=== PATIENT | male | born 1970 | race Caucasian/White ===

== ENCOUNTER 2016-11-17 19:00 | Emergency (ER) | payer OTHER ==
[~2016-11-17] VITALS: Ht 170.1 cm; Wt 65.8 kg
[~2016-11-17 19:00] MED LIST: CYCLOBENZAPRINE10 MG PO; HYDROCODONE BIT1 T11 PO; IMITREX25 M1 PO; MELOXICAM15 MG PO; NAPROSYN500 MG PO; NKHM; NORCO 325 MG-101 TAB PO; NORVASC5 MG PO; PREDNISONE10 MG PO; TOPAMAX25 M3 PO; VICODIN ES 7501 TAB PO; ZESTRIL2.5 MG PO; ZOFRAN ODT4 MG SL
== END 2016-11-17 22:03 | disposition home or self-care (01) ==
LOC: ED 19:00
DX: G44.209 Tension-type headache, unspecified, not intractable (principal); M25.511 Pain in right shoulder; Z79.899 Other long term (current) drug therapy; V49.88XA Car occupant (driver) (passenger) injured in other specified transport accidents, initial encounter; Y93.89 Activity, other specified; Y92.89 Other specified places as the place of occurrence of the external cause; Y99.9 Unspecified external cause status

== ENCOUNTER 2017-07-27 16:38 | Emergency (ER) | payer OTHER ==
[~2017-07-27] VITALS: Ht 170.1 cm; Wt 81.6 kg
[2017-07-27 17:38] LABS: BASO # 0.1 10*3/uL (0.0-0.1); BASO % 1.5 % (0.0-1.0); EOS % 14.3 % (1.0-4.0); HEMATOCRIT 42.1 % (42.0-52.0); HEMOGLOBIN 13.9 g/dl (14.0-18.0); LYMPH # 1.2 10*3/uL (1.3-4.4); LYMPH % 17.8 % (27.0-41.0); MEAN CELL VOLUME 81.4 fl (80.0-94.0); MEAN CORPUSCULAR HGB 26.9 pg (27.0-31.0); MEAN PLATELET VOLUME 9.3 fl (9.6-12.3); MONO # 0.5 10*3/uL (0.1-1.0); MONO % 7.9 % (3.0-9.0); NEUT % 58.4 % (47.0-73.0); PLATELET COUNT AUTOMATED 337 10*3/uL (130-400); RED BLOOD COUNT 5.17 10*6/uL (4.50-5.90); RED CELL DISTRI WIDTH 14.3 % (0-14.5); WHITE BLOOD COUNT 6.9 10*3/uL (4.8-10.8)
[2017-07-27 17:46] LABS: ACT PARTIAL THROMBO TIME 23.3 SECONDS (20.8-31.5)
[2017-07-27 17:55] LABS: ALBUMIN 3.8 gm/dl (3.1-4.5); ALKALINE PHOSPHATASE 74 U/L (45-117); BUN 11 mg/dl (7-24); CHLORIDE 107 mmol/L (98-107); CREATININE 1.11 mg/dL (0.70-1.30); LIPASE 193 U/L (73-393); SGOT/AST 20 IU/L (3-35); SGPT/ALT 30 U/L (12-78); SODIUM 141 mmol/L (136-145); TOTAL PROTEIN 7.8 gm/dL (6.4-8.2); TROPONIN I < 0.015 ng/ml (<0.045)
== END 2017-07-27 19:36 | disposition home or self-care (01) ==
LOC: ED 16:38
PROVIDERS: Emergency Medicine
DX: G43.909 Migraine, unspecified, not intractable, without status migrainosus (principal); I10 Essential (primary) hypertension; Z98.890 Other specified postprocedural states; Z79.899 Other long term (current) drug therapy

== ENCOUNTER 2017-08-14 09:58 | Emergency (ER) | payer OTHER ==
[~2017-08-14] VITALS: Ht 152.4 cm; Wt 79.4 kg
[2017-08-14] MEDS ORDERED: ZESTORETIC 10-1 EACH PO (12:31)
== END 2017-08-14 12:34 | disposition home or self-care (01) ==
LOC: ED 09:58
DX: I10 Essential (primary) hypertension (principal); G43.909 Migraine, unspecified, not intractable, without status migrainosus; Z98.890 Other specified postprocedural states; Z79.899 Other long term (current) drug therapy

== ENCOUNTER 2023-10-31 18:19 | Emergency (ER) | payer SELFPAY ==
[~2023-10-31] VITALS: Ht 170.1 cm; Wt 86.2 kg
[~2023-10-31 18:19] MED LIST changes: +ZESTORETIC 10-1 EACH PO
[2023-10-31] MEDS ORDERED: IBUPROFEN 600 MG TAB PO ONE (21:35)
== END 2023-10-31 21:38 | disposition home or self-care (01) ==
LOC: ED 18:19
DX: M79.671 Pain in right foot (principal); I10 Essential (primary) hypertension; G43.909 Migraine, unspecified, not intractable, without status migrainosus; Z98.890 Other specified postprocedural states; X50.1XXA Overexertion from prolonged static or awkward postures, initial encounter; Y93.89 Activity, other specified; Y92.89 Other specified places as the place of occurrence of the external cause; Y99.8 Other external cause status